=== PATIENT | female | born 1965 | race African-American/Black ===

== ENCOUNTER 2016-10-26 10:15 | Emergency (ER) | payer BC ==
[~2016-10-26] VITALS: Ht 165.1 cm; Wt 63.0 kg
[~2016-10-26 10:15] MED LIST: Ascorbic Acid,Ester- PO; MIDOL1 TABLET PO; Mylicon,Mylanta Gas, PO; PREVACID30 MG PO; Percocet 5/325,Endoc PO
[2016-10-26 10:36] LABS: HEMATOCRIT 38.8 % (36.0-46.0); MCH 30.9 PG (29.0-34.0); MCHC 34.8 G/DL (30.0-36.0); MCV 88.8 FL (83-99); MEAN PLAT.VOLUME 9.5 uM^3 (9.5-12.4); PLATELET COUNT 229 K/uL (156-360); RBC DIS.WIDTH-CV 13.1 % (11.8-14.6); RBC DIS.WIDTH-SD 41.8 % (39-53); RED BLOOD COUNT 4.37 M/uL (3.80-5.20); WHITE BLOOD COUNT 5.6 K/uL (4.1-10.2)
[2016-10-26 10:48] LABS: CHLORIDE 105 mEq/L (99-109); POTASSIUM 3.9 mEq/L (3.7-5.4); SODIUM 140 mEq/L (136-147)
[2016-10-26 10:50] LABS: GLUCOSE 111 mg/dL (70-99)
[2016-10-26 10:51] LABS: ANION GAP 12 MEQ/L (2-14)
[2016-10-26 10:52] LABS: TOTAL BILIRUBIN 0.4 mg/dL (0.0-1.0)
[2016-10-26 10:53] LABS: ALKALINE PHOSPHATASE 118 IU/L (3-129)
[2016-10-26 10:54] LABS: GFR ESTIMATE (CALCULATED) > 59 mL/min/
[2016-10-26 10:55] LABS: UREA NITROGEN (BUN) 13 mg/dL (9-23)
[2016-10-26 11:05] LABS: QUANTITATIVE HCG < 4.0 MIU/ML
[2016-10-26] MEDS ORDERED: PRINIVIL10 MG PO (11:11)
[2016-10-26] MEDS ORDERED: ZINC30 MG PO (11:11)
[2016-10-26 11:12] LABS: ADD MIUA? NO; BILIRUBIN NEGATIVE; BLOOD NEGATIVE; COLOR YELLOW ((YELLOW)); GLUCOSE (STRIP) NEGATIVE; KETONES NEGATIVE; LEUKOCYTES NEGATIVE; NITRITE NEGATIVE; PROTEIN (STRIP) NEGATIVE; SPECIFIC GRAVITY 1.028 (1.000-1.030); UCUL ADDED? NO; UROBILINOGEN 0.2 MG/DL (0.2-1.0)
[2016-10-26] MEDS ORDERED: FISH OIL300 MG PO (11:12)
[2016-10-26 12:36] LABS: LIPASE 49 U/L (1.0-51.0)
[2016-10-26] MEDS ORDERED: NAPROSYN500 MG PO (14:33)
[2016-10-26] MEDS ORDERED: ZOFRAN ODT4 MG PO (14:33)
[2016-10-26] MEDS ORDERED: LORTAB 5-325 M1 EACH PO (14:33)
[2016-10-26] MEDS ORDERED: FLOMAX0.4 MG PO (14:33)
[2016-10-26 15:01] VITALS: BP 136/88
== END 2016-10-26 16:03 | disposition home or self-care (01) ==
LOC: EME 10:15
DX: N20.0 Calculus of kidney (principal); R10.11 Right upper quadrant pain; R11.2 Nausea with vomiting, unspecified; K21.9 Gastro-esophageal reflux disease without esophagitis; F17.290 Nicotine dependence, other tobacco product, uncomplicated
CPT/HCPCS: 74020; 76705; 80053; 81003; 83690; 84702; 85027; 99281; 99284; J1885